=== PATIENT | female | born 1985 | race Caucasian/White ===

== ENCOUNTER 2023-06-18 04:55 | Emergency (ER) | payer OTHER ==
[~2023-06-18] VITALS: Ht 165.1 cm; Wt 72.0 kg
[2023-06-18 05:27] LABS: BASOPHILS 0.7 % (0-2); EOSINOPHILS 0.4 % (0-6); HEMATOCRIT 37.8 % (35.0-50.0); HEMOGLOBIN 12.5 g/dL (12.0-18.0); LYMPHOCYTES 33.1 % (24-44); MCH 30.2 (27-36); MCHC 33.1 g/dl (30-36); MCV 91.1 fl (81-99); NEUTROPHILS 58.8 % (39-80); PLATELET COUNT 220 K/uL (140-440); RBC 4.15 M/ul (4.3-5.7); RDW 12.4 (10.5-15.0)
[2023-06-18 05:42] LABS: ALBUMIN 3.7 g/dL (3.4-5.0); ALBUMIN/GLOBULIN RATIO 1.19 (1.1-2.4); ANION GAP 14.2 (7-21); BILIRUBIN, TOTAL 1.9 ng/dL (0.2-1.0); CREATININE, SERUM 0.75 mg/dL (0.55-1.02); POTASSIUM 3.2 mmol/L (3.5-5.1); PROTEIN, TOTAL 6.8 g/dL (6.4-8.2)
[2023-06-18 06:10] LABS: INFLUENZA B NAA NEGATIVE (NEGATIVE); RESPIRATORY SYNCYTIAL VIR NAA NEGATIVE (NEGATIVE)
[2023-06-18 06:23] LABS: BILIRUBIN, URINE NEGATIVE (negative); BLOOD/HGB, URINE LARGE (Negative); KETONE, URINE >=80 (Negative); LEUK ESTERASE, URINE NEGATIVE (negative); NITRITE, URINE NEGATIVE (negative)
[2023-06-18 06:34] LABS: BACTERIA, URINE 1+ /hpf (negative); CASTS, URINE NONE SEEN \\lpf; COLLECTION TYPE, URINE CLEAN CATCH; CRYSTALS, URINE NONE SEEN (0-1+); EPITHELIAL CELLS, URINE SQUAMOUS 2+ /lpf (0-1+); REFLEX CULTURE, URINE No (No); WHITE BLOOD CELLS, URINE 0-1 /HPF (0-5)
[2023-06-18] MEDS ORDERED: AMOX TR-K CLV1 EAC1 PO (06:41)
[2023-06-18] MEDS ORDERED: ONDANSETRON ODT4 MG PO (06:41)
[2023-06-18 06:52] VITALS: BP 109/54
== END 2023-06-18 06:52 | disposition home or self-care (01) ==
LOC: ED 04:55
PROVIDERS: Internal Medicine
DX: B34.9 Viral infection, unspecified (principal); K04.7 Periapical abscess without sinus; F17.200 Nicotine dependence, unspecified, uncomplicated; Z20.822 Contact with and (suspected) exposure to COVID-19
CPT/HCPCS: 36415; 80053; 81001; 83690; 84703; 85025; 87502; 96361; 96374; 99284-25; C9803; J2405; J7121; U0002